=== PATIENT | female | born 1965 | race Caucasian/White ===

== ENCOUNTER 2020-02-25 11:16 | Outpatient (REF) | payer OTHER, SELFPAY ==
[2020-02-25 12:20] LABS: MANUAL DIFF FLAG NO
[2020-02-25 12:24] LABS: Basophils Absolute Auto 0.1 X10*3/uL (0.0-0.2); Basophils Percent Auto 0.7 % (0-2); Eosinophils Absolute Auto 0.4 X10*3/uL (0.0-0.4); Hematocrit 45.5 % (37-47); Hemoglobin 14.8 g/dl (12.0-16.0); Imm Gran Abs Auto 0.03 X10*3/uL (0.00-0.03); Imm Gran Pct Auto 0.4 % (0.0-0.4); Lymphocytes Absolute Auto 2.2 X10*3/uL (1.2-4.9); Mean Corpuscular HGB Conc 32.5 g/dl (31.0-35.0); Mean Corpuscular Hemoglobin 30.4 pg (27.0-33.0); Mean Corpuscular Volume 93.4 fL (80-98); Mean Platelet Volume 10.8 fL (9.4-12.3); Monocytes Absolute Auto 0.4 X10*3/uL (0.1-1.2); Monocytes Percent Auto 5.9 % (2-11); Neutrophils Absolute Auto 4.4 X10*3/uL (2.0-8.3); Platelet Count 260 X10*3/uL (160-400); Red Blood Count 4.87 X10*6/uL (4.20-5.50); Red Cell Distribution Width 12.1 % (11.0-16.0); White Blood Count 7.4 X10*3/uL (4.8-10.8)
[2020-02-25 12:45] LABS: Alanine Aminotransferase 16 U/L (0-31); Albumin Level 4.2 g/dL (3.5-5.0); Alkaline Phosphatase 80 U/L (39-117); Anion Gap 12 (12-20); Aspartate Amino Transferase 16 U/L (5-31); Bilirubin Total 0.3 mg/dL (0.0-1.0); Blood Urea Nitrogen 18 mg/dL (9-16); Calcium 9.8 mg/dL (8.4-10.2); Carbon Dioxide 27 mmol/L (22-29); Chloride 108 mmol/L (96-108); Cholesterol 200 mg/dL; Estimated Glomerular Filt Rate 49; Glucose Fasting 95 mg/dL (60-99); HDL Cholesterol 50 mg/dL; LDL Cholesterol Calculated 122 mg/dl; Potassium 4.5 mmol/l (3.3-5.1); Sodium 142 mmol/L (135-145); Triglycerides 140 mg/dL
[2020-02-25 13:05] LABS: Thyroid Stimulating Hormone 2.35 mIU/mL (0.32-4.0); Vitamin D 25-OH Total 23.8 ng/mL (>30)
== END 2020-02-25 11:17 | disposition home or self-care (01) ==
LOC: HO.LAB 11:16
PROVIDERS: PCP Internal Medicine; Visit Provider Internal Medicine
DX: E89.0 Postprocedural hypothyroidism (principal); E78.00 Pure hypercholesterolemia, unspecified
CPT/HCPCS: 36415; 80053; 80061; 82306; 84443; 85025

== ENCOUNTER 2021-09-18 07:24 | Outpatient (REF) | payer OTHER, SELFPAY ==
[2021-09-18 07:36] LABS: MANUAL DIFF FLAG NO
[2021-09-18 08:06] LABS: Basophils Percent Auto 0.3 % (0-2); Eosinophils Absolute Auto 0.3 X10*3/uL (0.0-0.4); Eosinophils Percent Auto 3.5 % (0-4); Hematocrit 43.5 % (37.0-47.0); Hemoglobin 14.7 g/dl (12.0-16.0); Imm Gran Abs Auto 0.03 X10*3/uL (0.00-0.03); Imm Gran Pct Auto 0.3 % (0.0-0.4); Lymphocytes Absolute Auto 2.6 X10*3/uL (1.2-4.9); Lymphocytes Percent Auto 27.3 % (20-40); Mean Corpuscular HGB Conc 33.8 g/dl (31.0-35.0); Mean Corpuscular Hemoglobin 30.7 pg (27.0-33.0); Mean Corpuscular Volume 90.8 fL (80.0-98.0); Mean Platelet Volume 10.3 fL (9.4-12.3); Monocytes Absolute Auto 0.7 X10*3/uL (0.1-1.2); Monocytes Percent Auto 7.1 % (2-11); Neutrophils Absolute Auto 5.9 x10*3/uL (2.0-8.3); Neutrophils Percent Auto 61.5 % (45-73); Platelet Count 281 X10*3/uL (160-400); Red Blood Count 4.79 X10*6/uL (4.20-5.50); Red Cell Distribution Width 12.9 % (11.0-16.0); White Blood Count 9.5 X10*3/uL (4.8-10.8)
[2021-09-18 08:27] LABS: Alanine Aminotransferase 18 U/L (0-31); Albumin Level 4.3 g/dL (3.5-5.0); Alkaline Phosphatase 68 U/L (39-117); Anion Gap 13 (12-20); Aspartate Amino Transferase 19 U/L (5-31); Bilirubin Total 0.4 mg/dL (0.0-1.0); Blood Urea Nitrogen 15 mg/dL (9-16); Calcium 9.5 mg/dL (8.4-10.2); Carbon Dioxide 23 mmol/L (22-29); Chloride 109 mmol/L (96-108); Cholesterol 189 mg/dL; Estimated Glomerular Filt Rate 55; Glucose Fasting 105 mg/dL (60-99); HDL Cholesterol 42 mg/dL; LDL Cholesterol Calculated 115 mg/dl; Potassium 3.6 mmol/L (3.3-5.1); Sodium 141 mmol/L (135-145); Total Protein 7.3 g/dL (6.5-8.0); Triglycerides 163 mg/dL
[2021-09-18 08:51] LABS: Thyroid Stimulating Hormone 5.98 uIU/mL (0.32-4.0); Vitamin D 25-OH Total 37.3 ng/mL (>30)
== END 2021-09-18 07:25 | disposition home or self-care (01) ==
LOC: HO.LAB 07:24
PROVIDERS: PCP Internal Medicine; Visit Provider Internal Medicine
DX: E89.0 Postprocedural hypothyroidism (principal)
CPT/HCPCS: 36415; 80053; 80061; 82306; 84443; 85025

== ENCOUNTER 2021-09-18 07:39 | Day surgery (SDC) | payer OTHER, SELFPAY ==
[2021-09-11 14:20] VITALS: BMI 30.1
--- NOTE | 2021-09-17 10:00 | HO.ANESPROP2 ---
Documented by User: Dinorah Kerr NP 09/17/21 10:01 HPI - Anesthesia Eval Consult details Narrative: 55yo F for Upper Endoscopy and Colonoscopy [facility] Past Medical History Medical History (Updated 09/11/21 @ 14:13 by Twila Maria, CAROL) Celiac disease Elevated cholesterol Graves disease Surgical History Surgical History (Updated 09/11/21 @ 14:13 by Twila Maria RN) Hx of appendectomy Hx of sinus surgery Social History Social History Patient Tobacco Use Status: Current someday Tobacco user Use of substances other than those prescribed or required for medical reasons: No Are you DNR?: No Advance Directives: No Advance Directives Information Provided: Yes Meds Allergies Allergy/AdvReac Type Severity Reaction Status Date / Time nitrofurantoin Allergy Intermediate RASH Verified 09/11/21 14:14 [From MACROBID] sulfamethoxazole Allergy Intermediate RASH Verified 09/11/21 14:14 [From BACTRIM] trimethoprim [From BACTRIM] Allergy Intermediate RASH Verified 09/11/21 14:14 Penicillins [PENICILLINS] Allergy Unknown UNK Verified 09/11/21 14:14 Home Medications Medication Instructions Recorded Confirmed Last Taken Type cholecalciferol (vitamin D3) 25 25 mcg PO DAILY 09/11/21 09/11/21 Unknown History mcg (1,000 unit) capsule (Vitamin D3) flaxseed oil 1,000 mg capsule 1,000 mg PO DAILY 09/11/21 09/18/21 09/11/21 History levothyroxine 75 mcg tablet 75 mcg PO DAILY 09/11/21 09/18/21 09/18/21 History (Levoxyl) naproxen 500 mg tablet 500 mg PO BID PRN 09/11/21 09/18/21 09/11/21 History pravastatin 20 mg tablet 20 mg PO BEDTIME 09/11/21 09/11/21 Unknown History Exam Exam Date and Time: September 17, 2021 1001 Height,Weight and Vital Signs: Height 5 ft 3 in Weight 77.111 kg Assessment and Plan Assessment Anesthesia Assessment: Chart Reviewed Documented by User: Solange Alva MD 09/18/21 08:45 PMFSH Past Medical History Medical History (Updated 09/11/21 @ 14:13 by Twila Maria, CAROL) Celiac disease Elevated cholesterol Graves disease Surgical History Surgical History (Updated 09/11/21 @ 14:13 by Twila Maria, CAROL) Hx of appendectomy Hx of sinus surgery History of Problems with Anesthesia: No Social History Social History Patient Tobacco Use Status: Current someday Tobacco user Use of substances other than those prescribed or required for medical reasons: No Are you DNR?: No Advance Directives: No Advance Directives Information Provided: Yes Meds Allergies Allergy/AdvReac Type Severity Reaction Status Date / Time nitrofurantoin Allergy Intermediate RASH Verified 09/11/21 14:14 [From MACROBID] sulfamethoxazole Allergy Intermediate RASH Verified 09/11/21 14:14 [From BACTRIM] trimethoprim [From BACTRIM] Allergy Intermediate RASH Verified 09/11/21 14:14 Penicillins [PENICILLINS] Allergy Unknown UNK Verified 09/11/21 14:14 Home Medications Medication Instructions Recorded Confirmed Last Taken Type cholecalciferol (vitamin D3) 25 25 mcg PO DAILY 09/11/21 09/11/21 Unknown History mcg (1,000 unit) capsule (Vitamin D3) flaxseed oil 1,000 mg capsule 1,000 mg PO DAILY 09/11/21 09/18/21 09/11/21 History levothyroxine 75 mcg tablet 75 mcg PO DAILY 09/11/21 09/18/21 09/18/21 History (Levoxyl) naproxen 500 mg tablet 500 mg PO BID PRN 09/11/21 09/18/21 09/11/21 History pravastatin 20 mg tablet 20 mg PO BEDTIME 09/11/21 09/11/21 Unknown History Exam Airway Mallampati Class: II TM Dist: >3cm Neck ROM: Full Loose/Missing/Broken Teeth: No Heart: RRR Lungs: CTA Assessment and Plan Final Anesthetic Review History of Problems with Anesthesia: No NPO: Yes ASA Class: II Final Preanesthetic Review: Meds/Allgs Chart Reviewed, Consent Obtained/Reviewed and Anes Risks/Benef Reviewed Patient Risk: Low Procedure Risk: Intermediate Anesthetic Plan Anesthetic Plan: MAC: Disposition: Standard PACU
[2021-09-18 07:58] VITALS: BMI 29.2
[2021-09-18 08:18] VITALS: BP 166/80; PULSE 74; RESP 18; TEMP 36.8; O2SAT 95
--- NOTE | 2021-09-18 08:40 | MHC.SHP ---
Pre-Procedural Eval Section A Date of Service: 09/18/21 Section B Chief Complaint: Celiac disease,screening,reflux disease Details of Present Illness: see h and p no changes Relevant Family History (Specify if Yes): No Relevant Social History: None Present Medications: see Short Stay Collaborative assessment Medical History: No relevant PMH Allergies: Allergies Allergy/AdvReac Type Severity Reaction Status Date / Time nitrofurantoin Allergy Intermediate RASH Verified 09/11/21 14:14 [From MACROBID] sulfamethoxazole Allergy Intermediate RASH Verified 09/11/21 14:14 [From BACTRIM] trimethoprim [From BACTRIM] Allergy Intermediate RASH Verified 09/11/21 14:14 Penicillins [PENICILLINS] Allergy Unknown UNK Verified 09/11/21 14:14 Review of Systems Sugical H&P ROS: Negative: Constitution, Cardiovascular, Respiratory, Neurological, Psychiatric, Hem-Onc, Allergic/Immunologic, Gastrointestinal, Genitourinary, Musculoskeletal, Integumentary, Endocrine and Eyes/Ears/Nose/Throat Exam Surgical H&P Exam: Normal: HEENT, Normal: Heart, Normal: Lungs, Normal: Extremities, Normal: Abdomen, Normal: Skin and Normal: Neurological Plan Diagnosis/Plan: Unchanged I have reviewed the history and physical and performed a pertinent physical examination on my patient. No changes have occurred unless specified.
[2021-09-18] MEDS: Lactated Ringers 1,000 ML 100 ML IVCONT (08:44)
--- NOTE | 2021-09-18 09:23 | PM.OP ---
Brief Operative Note Date of Service: 09/18/21 Pre-op diagnosis: gerd, celiac disease, screening Post-op diagnosis: same Procedure: egd/colon Surgeon: Washington Ontiveros Anesthesia: MAC Was an [employer] used for this Procedure?: No Estimated blood loss (mL): 5 Pathology: other Condition: stable Disposition: PACU
[2021-09-18 09:25] VITALS: BP 124/70; PULSE 67; RESP 18; TEMP 36.8; O2SAT 98
[2021-09-18 09:40] VITALS: PULSE 73; RESP 18; TEMP 36.8; O2SAT 98
--- NOTE | 2021-09-18 20:12 | OP_ITS ---
SURGEON: Washington Ontiveros MD INDICATIONS: Gastroesophageal reflux disease, celiac disease, and colon cancer screening. PREOPERATIVE DIAGNOSIS: POSTOPERATIVE DIAGNOSIS: PROCEDURE PERFORMED: ESTIMATED BLOOD LOSS: COMPLICATIONS: ANESTHESIA: ASSISTANTS: SPECIMENS: PROCEDURE: Upper endoscopy with biopsy, colonoscopy to the terminal ileum. MEDICATIONS: Monitored anesthesia care. DESCRIPTION OF PROCEDURE: History and physical performed. The risks and benefits of the procedure were explained to the patient. Informed consent was obtained. The patient was placed in the left lateral decubitus position. The Olympus video gastroscope was introduced into the esophagus, stomach, and duodenum. Examination was performed. The scope was removed. She was repositioned for colonoscopy. A digital rectal exam was performed and was found to be normal. The Olympus pediatric video colonoscope was introduced into the rectum and advanced to the cecum without difficulty. The cecum was identified by transillumination, palpation, and identification of ileocecal valve. Examination was performed. The scope was removed. She tolerated both procedures well and was returned to recovery area in stable condition. FINDINGS: Upper endoscopy: 1. Esophagus: The esophagus was normal. There was a nonobstructive Schatzki ring. There was no esophagitis. There was a small sliding hiatal hernia. 2. Stomach: The stomach showed no evidence of masses, ulcers, or polyps. Antral biopsies were obtained to rule out H pylori. Biopsies were also obtained from the EG junction. 3. Duodenum: The bulb and second portion were normal. Biopsies were obtained because of the patient's history of celiac disease. COLONOSCOPY: The terminal ileum was normal. The visualized colonic mucosa was normal. The quality of prep was good. No polyps were identified. There was mild sigmoid diverticulosis. Retroflexed examination showed some hypertrophic anal papillae and some moderate-sized internal hemorrhoids. IMPRESSION: 1. Gastroesophageal reflux disease. 2. Celiac disease. 3. Normal colonoscopy. RECOMMENDATIONS: 1. Follow up the biopsy results. 2. Repeat colonoscopy is recommended in 10 years for average risk individuals. MD ROGERS Ford/GIULIAL / [id number]
== END 2021-09-18 10:04 | disposition home or self-care (01) ==
PROVIDERS: PCP Internal Medicine; Visit Provider Internal Medicine Gastroenterology
PROC: (CPT 45378; principal; 2021-09-18 08:50)
DX: Z12.11 Encounter for screening for malignant neoplasm of colon (principal); K57.30 Diverticulosis of large intestine without perforation or abscess without bleeding; K62.89 Other specified diseases of anus and rectum; K64.8 Other hemorrhoids; K21.9 Gastro-esophageal reflux disease without esophagitis; K90.0 Celiac disease; K22.2 Esophageal obstruction; K44.9 Diaphragmatic hernia without obstruction or gangrene; E05.00 Thyrotoxicosis with diffuse goiter without thyrotoxic crisis or storm; E78.00 Pure hypercholesterolemia, unspecified; L80 Vitiligo; Z79.899 Other long term (current) drug therapy; Z79.1 Long term (current) use of non-steroidal anti-inflammatories (NSAID); Z88.0 Allergy status to penicillin; Z88.1 Allergy status to other antibiotic agents; Z88.2 Allergy status to sulfonamides; Z98.890 Other specified postprocedural states
CPT/HCPCS: 45378; 43239; 88305; 88342

== ENCOUNTER 2023-07-28 08:06 | Outpatient (REF) | payer OTHER, SELFPAY ==
[2023-07-28 11:04] LABS: MANUAL DIFF FLAG NO
[2023-07-28 11:08] LABS: Basophils Absolute Auto 0.1 X10*3/uL (0.0-0.2); Basophils Percent Auto 0.5 % (0-2); Eosinophils Absolute Auto 0.4 X10*3/uL (0.0-0.4); Eosinophils Percent Auto 3.8 % (0-4); Hematocrit 45.4 % (37.0-47.0); Hemoglobin 15.3 g/dl (12.0-16.0); Imm Gran Abs Auto 0.03 X10*3/uL (0.00-0.03); Imm Gran Pct Auto 0.3 % (0.0-0.4); Lymphocytes Absolute Auto 2.5 X10*3/uL (1.2-4.9); Mean Corpuscular HGB Conc 33.7 g/dl (31.0-35.0); Mean Corpuscular Hemoglobin 30.8 pg (27.0-33.0); Mean Corpuscular Volume 91.3 fL (80.0-98.0); Mean Platelet Volume 9.9 fL (9.4-12.3); Monocytes Absolute Auto 0.6 X10*3/uL (0.1-1.2); Monocytes Percent Auto 6.5 % (2-11); Neutrophils Absolute Auto 5.7 x10*3/uL (2.0-8.3); Neutrophils Percent Auto 61.9 % (45-73); Platelet Count 294 X10*3/uL (160-400); Red Blood Count 4.97 X10*6/uL (4.20-5.50); Red Cell Distribution Width 12.5 % (11.0-16.0); White Blood Count 9.2 X10*3/uL (4.8-10.8)
[2023-07-28 11:32] LABS: Alanine Aminotransferase 20 U/L (0-31); Albumin Level 4.3 g/dL (3.5-5.0); Alkaline Phosphatase 90 U/L (39-117); Anion Gap 13 (12-20); Aspartate Amino Transferase 17 U/L (5-31); Bilirubin Total 0.3 mg/dL (0.0-1.0); Blood Urea Nitrogen 21 mg/dL (9-16); Calcium 9.7 mg/dL (8.4-10.2); Carbon Dioxide 27 mmol/L (22-29); Chloride 107 mmol/L (96-108); Cholesterol 198 mg/dL (<200); Estimated Glomerular Filt Rate > 60; Glucose Fasting 108 mg/dL (60-99); HDL Cholesterol 49 mg/dL (>40); LDL Cholesterol Calculated 121 mg/dL (<100); Potassium 3.8 mmol/L (3.3-5.1); Sodium 143 mmol/L (135-145); Total Protein 7.7 g/dL (6.5-8.0); Triglycerides 143 mg/dL (<150)
[2023-07-28 11:50] LABS: Vitamin D 25-OH Total 38.6 ng/mL (>30)
== END 2023-07-28 08:07 | disposition home or self-care (01) ==
LOC: HO.10HDL 08:06
PROVIDERS: Visit Provider Internal Medicine
DX: Z00.00 Encounter for general adult medical examination without abnormal findings (principal); E78.00 Pure hypercholesterolemia, unspecified; K90.0 Celiac disease; E89.0 Postprocedural hypothyroidism
CPT/HCPCS: 36415; 80053; 80061; 82306; 84443; 85025

== ENCOUNTER 2023-08-26 12:43 | Outpatient (REF) | payer OTHER, SELFPAY ==
--- NOTE | ~2023-08-26 | XR_ITS ---
EXAMINATION: XR LEFT ANKLE, LEFT FOOT CLINICAL INFORMATION: Patient stated no injury. Pain in left ankle and foot, lateral ankle combined with lateral foot. COMPARISON: None available. TECHNIQUE: 3 views of the left foot. 2 views of the left ankle. FINDINGS: Left Ankle: Ankle joint effusion. Soft tissue swelling diffusely of the left ankle and lateral left foot. Small dorsal and plantar calcaneal spurs. Talar dome and ankle mortise are preserved. Left Foot: The bones are diffusely demineralized. Heterogeneous calcifications in the soft tissues between the shafts of the first and second metatarsals. Moderate degenerative changes in the first metatarsophalangeal joint. Tiny subchondral cystic lucency along the medial aspect of the first metatarsal head. Moderate degenerative changes with hypertrophic change in the first tarsometatarsal joint. XR/XR ankle LT min 3V IMPRESSION: 1. Ankle joint effusion. Soft tissue swelling diffusely about the left ankle and lateral left foot. 2. Moderate degenerative changes in the first metatarsophalangeal joint. Tiny subchondral cystic lucency along the medial aspect of the first metatarsal head. 3. Moderate degenerative changes with hypertrophic change in the first tarsometatarsal joint. 4. Heterogeneous calcifications in the soft tissues between the shafts of the first and second metatarsals. 5. Recommend follow-up imaging in 10-14 days if fracture is suspected.
--- NOTE | ~2023-08-26 | XR_ITS ---
EXAMINATION: XR LEFT ANKLE, LEFT FOOT CLINICAL INFORMATION: Patient stated no injury. Pain in left ankle and foot, lateral ankle combined with lateral foot. COMPARISON: None available. TECHNIQUE: 3 views of the left foot. 2 views of the left ankle. FINDINGS: Left Ankle: Ankle joint effusion. Soft tissue swelling diffusely of the left ankle and lateral left foot. Small dorsal and plantar calcaneal spurs. Talar dome and ankle mortise are preserved. Left Foot: The bones are diffusely demineralized. Heterogeneous calcifications in the soft tissues between the shafts of the first and second metatarsals. Moderate degenerative changes in the first metatarsophalangeal joint. Tiny subchondral cystic lucency along the medial aspect of the first metatarsal head. Moderate degenerative changes with hypertrophic change in the first tarsometatarsal joint. XR/XR foot LT min 3V IMPRESSION: 1. Ankle joint effusion. Soft tissue swelling diffusely about the left ankle and lateral left foot. 2. Moderate degenerative changes in the first metatarsophalangeal joint. Tiny subchondral cystic lucency along the medial aspect of the first metatarsal head. 3. Moderate degenerative changes with hypertrophic change in the first tarsometatarsal joint. 4. Heterogeneous calcifications in the soft tissues between the shafts of the first and second metatarsals. 5. Recommend follow-up imaging in 10-14 days if fracture is suspected.
== END 2023-08-26 12:44 | disposition home or self-care (01) ==
LOC: HO.XRAY 12:43
PROVIDERS: PCP Internal Medicine; Visit Provider Internal Medicine
DX: M25.572 Pain in left ankle and joints of left foot (principal)
CPT/HCPCS: 73610; 73630

== ENCOUNTER 2024-02-06 15:51 | Outpatient (REF) | payer OTHER, SELFPAY ==
[2024-02-06 16:04] LABS: MANUAL DIFF FLAG NO
[2024-02-06 16:51] LABS: Basophils Absolute Auto 0.1 X10*3/uL (0.0-0.2); Basophils Percent Auto 0.7 % (0-2); Eosinophils Absolute Auto 0.3 X10*3/uL (0.0-0.4); Eosinophils Percent Auto 3.1 % (0-4); Hematocrit 44.3 % (37.0-47.0); Hemoglobin 14.8 g/dl (12.0-16.0); Imm Gran Abs Auto 0.09 X10*3/uL (0.00-0.03); Lymphocytes Absolute Auto 2.3 X10*3/uL (1.2-4.9); Lymphocytes Percent Auto 25.2 % (20-40); Mean Corpuscular HGB Conc 33.4 g/dl (31.0-35.0); Mean Corpuscular Volume 92.9 fL (80.0-98.0); Mean Platelet Volume 10.8 fL (9.4-12.3); Monocytes Absolute Auto 0.6 X10*3/uL (0.1-1.2); Neutrophils Absolute Auto 5.7 x10*3/uL (2.0-8.3); Platelet Count 295 X10*3/uL (160-400); Red Blood Count 4.77 X10*6/uL (4.20-5.50); Red Cell Distribution Width 12.6 % (11.0-16.0)
[2024-02-06 17:09] LABS: Alanine Aminotransferase 15 U/L (0-31); Albumin Level 4.3 g/dL (3.5-5.0); Alkaline Phosphatase 85 U/L (39-117); Anion Gap 14 (12-20); Aspartate Amino Transferase 15 U/L (5-31); Bilirubin Total 0.2 mg/dL (0.0-1.0); Blood Urea Nitrogen 21 mg/dL (9-16); Calcium 10.2 mg/dL (8.4-10.2); Carbon Dioxide 25 mmol/L (22-29); Chloride 107 mmol/L (96-108); Estimated Glomerular Filt Rate > 60; Glucose Random 90 mg/dL (60-115); Potassium 4.1 mmol/L (3.3-5.1); Sodium 142 mmol/L (135-145); Total Protein 7.5 g/dL (6.5-8.0); Uric Acid 5.2 mg/dL (2.4-5.7)
[2024-02-06 19:26] LABS: Erythrocyte Sedimentation Rate 12 MM/HR (0-20)
== END 2024-02-06 15:52 | disposition home or self-care (01) ==
LOC: HO.LAB 15:51
PROVIDERS: PCP Internal Medicine; Visit Provider Internal Medicine
DX: M25.572 Pain in left ankle and joints of left foot (principal)
CPT/HCPCS: 36415; 80053; 84550; 85025; 85652; 86140

== ENCOUNTER 2024-09-17 15:56 | Outpatient (AMB) | payer OTHER, SELFPAY ==
--- NOTE | 2024-09-17 15:59 | A.OFFPC_ITS ---
Vital Signs 09/17/24 16:07 Height 5 ft 3 in Weight 165 lb BMI 29.2 BP 150/74 H Respiration 14 Pulse 80 Pulse Source Pulse Oximeter Temp 97.8 F Temp Source Temporal Artery Scan Pulse Oximetry (%) 95 Oxygen Delivery Method Room Air Intake Visit Reasons: Follow up Education Analyst Required: No Accompanied by: Self / Same As Patient Allergies nitrofurantoin [From MACROBID] Allergy (Intermediate, Verified 09/17/24 16:25) RASH sulfamethoxazole [From BACTRIM] Allergy (Intermediate, Verified 09/17/24 16:25) RASH trimethoprim [From BACTRIM] Allergy (Intermediate, Verified 09/17/24 16:25) RASH amoxicillin Allergy (Mild, Verified 09/17/24 16:25) Rash Penicillins [PENICILLINS] Allergy (Unknown, Verified 09/17/24 16:25) UNK Medication List - Last Reconciled 09/17/24 by Clara Beth PA-C celecoxib 200 mg PO DAILY cholecalciferol (vitamin D3) (Vitamin D3) 25 mcg PO DAILY flaxseed oil 1,000 mg PO DAILY levothyroxine 100 mcg PO DAILY sertraline 50 mg PO DAILY Tobacco use date assessed: 09/17/24 Dental Screening Dental Screen Date: 09/17/24 Did you have a dental visit in the last 12 months?: No Did you have a dental problem in the last 6 months where you did not have access to dental care?: No HPI Follow up HPI Details The patient is a 58-year-old female presenting with hypertension and for medication management. She reports having blood pressure readings at home indicating consistent elevations, such as 166/88 mmHg and 172/74 mmHg. 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 In addition to hypertension, the patient addresses osteoarthritis in her ankle causing pain during physical activity, such as walking. She manages the condition with orthotics after strategies including a steroid and usage of a boot. The patient has a history of Graves' disease, with radioactive iodine treatment administered after a major decline in thyroid function post-. She has maintained regular monitoring and medication since these events. She expresses a desire to discontinue sertraline, questioning its efficacy in managing her primary concern of anxiety. The patient has experienced depression in the past but identifies current anxiety as distinct and unaffected by sertraline. Lastly, the patient has celiac disease and a history of dental issues, worsened by a previous dentist's inappropriate management. Social History - Exercise: The patient attempts to main tain physical activity through walking, despite pain from osteoarthritis in her ankle. - Weight Management: She endeavors to ma nage her weight actively. - Family Status: Recently visited [facility] with her son, indicating an active family role. [facility] Medical History (Updated 09/20/24 @ 10:50 by Clara Beth PA-C) Hypertension Depression Osteoarthritis Hyperlipidemia LDL goal <100 History of mammogram (~06/2024) Establishing care with new doctor, encounter for Vitiligo Anxiety Neuropathy Pure hypercholesterolemia, unspecified Graves disease Celiac disease Elevated cholesterol Surgical History History of colonoscopy (~09/18/21) Hx of sinus surgery Hx of appendectomy Family History Father Heart attack Mother Dementia Social History Housing: House Alcohol intake: current Alcohol intake frequency: holidays/special occasions only Patient Tobacco Use Status: Current everyday Tobacco user Cigarettes Per Day: 6 service: Yes Current occupational status: employed Cognitive needs: No Hearing needs: No Vision needs: Yes (rx glasses) Questionnaire PHQ-9 Over the last 2 weeks, how often have you been bothered by any of the following problems? 1. Little interest or pleasure in doing things: not at all 2. Feeling down, depressed, or hopeless: not at all 3. Trouble falling or staying asleep, or sleeping too much: not at all 4. Feeling tired or having little energy: not at all 5. Poor appetite or overeating: not at all 6. Feeling bad about yourself - or that you are a failure or have let yourself or your family down: not at all 7. Trouble concentrating on things, such as reading the newspaper or watching television: not at all 8. Moving or speaking so slowly that other people could have noticed. Or the opposite - being so fidgety or restless that you have been moving around a lot more than usual: not at all 9. Thoughts that you would be better off or of hurting yourself in some way: not at all Total score: 0 Depression Screening Interpretation: Negative Depression Screening Done: Yes 53852 - PHQ-9 Billing: Yes Source: Developed by Drs. Shaq Mccollum, Shaina Muniz, Hernandez Antonio and colleagues, with an educational janna from [employer]. Thrive Questionnaire Date Thrive assessed: 09/17/24 I am a: Patient What is your living situation today?: I have a steady place to live Within the past 12 months, did the food you bought not last and you didn't have the money to get more?: Never true Within the past 12 months, did you worry whether your food would run out before you got money to buy more?: Never true Do you have trouble paying for medicines?: No Do you have trouble getting transportation to medical appointments?: No Do you have trouble paying your heating and electricity bill?: No Do you have trouble taking care of your child, family member or friend?: No Do you have trouble with day-to-day activities such as bathing, preparing meals, shopping, managing finances, etc.?: No Are you currently unemployed and looking for a job?: No Are you interested in more education?: No Please select the resources that you would like help with: None THRIVE Score: 0 AUDIT C Alcohol Use Questionnaire (AUDIT-C) 1. How often do you have a drink containing alcohol?: Monthly or less 2. How many drinks containing alcohol do you have on a typical day when you are drinking?: 1 or 2 3. How often do you have six or more drinks on one occasion?: Never Total Score: 1 Score Reviewed/Action Taken: No EWA-7 AMB Questionnaire EWA-7 Date EWA - 7 assessed: 09/17/24 Feeling nervous, anxious, or on edge: 1 = Several days Not being able to stop or control worryin = Nearly every day Worrying too much about different things: 3 = Nearly every day Trouble relaxin = Nearly every day Being so restless that it is hard to sit still: 3 = Nearly every day Becoming easily annoyed or irritable: 1 = Several days Feeling afraid as if something awful might happen: 1 = Several days Total EWA-7 score (0-4 normal; 5-9 mild; 10-14 moderate; 15-21 severe): 15 Source: Developed by Drs. Shaq Mccollum, Shaina Muniz, Hernandez Antonio and colleagues, with an educational janna from [employer]. EWA-7 Assessment Billing EWA-7 Assessment Tool: EWA-7 Assessment 14697 Review of Systems Const Details: - Cardiovascular: Reports elevated blood pressure at home, with no other cardiovascular symptoms. - Musculoskeletal: Reports ankle pain due to osteoarthritis. - Endocrine: Reports history of Graves' disease, currently on medication. - Psychiatric: Reports history of depression and current anxiety, desires to discontinue sertraline. - Dental: Reports past issues with dental health. - Gastrointestinal: Celiac disease reported, with no details on current symptoms. Physical exam (Primary Care) Vital Signs: Last Vital Signs Temp 97.8 F 09/17/24 16:07 Pulse 80 09/17/24 16:07 Resp 14 09/17/24 16:07 BP 150/74 H 09/17/24 16:07 Pulse Ox 95 09/17/24 16:07 Oxygen Delivery Method Room Air 09/17/24 16:07 Care Plan Goal for BP management: <130/90 BMI result Body Mass Index 29.2 BMI Assessment/Plan discussion: High BMI High, discussed plan: lifestyle, weight reduction, dietary, physical activity and alcohol moderation Tobacco/Smoking Status: Tobacco use Status Tobacco use date assessed 09/17/24 09/17/24 16:03 Patient Tobacco Use Status Current everyday Tobacco 09/17/24 16:17 PHQ-9: PHQ-9 Score PHQ-9: Total score 0 09/17/24 16:25 Depression Screening Interpretation: Negative Thrive Assessment: Date of Thrive Assessment Date Thrive assessed 09/17/24 09/17/24 16:03 Const Other: Appearance: Alert. Oriented X3. No acute distress. Head: Normal external exam. Normocephalic. Atraumatic. Eyes: Pupils are equal, round, and reactive to light. Extraocular movements intact. Conjunctiva and sclera normal. Eyelids normal. Ears: External auditory canal normal. Tympanic membranes normal. Throat: Pharynx normal. Uvula midline. Moist mucous membranes. Neck: Normal inspection. Neck supple. Full range of motion. No adenopathy. Thyroid Normal. No meningeal signs. No neck mass noted. Cardiovascular: Normal heart rate and rhythm. Heart sound normal. No murmurs noted. Pulses normal throughout. Respiratory: No respiratory distress. Painless inspiration. Breath sounds normal. No wheezes/rales/rhonchi noted. Chest nontender. No accessory muscle usage noted or decreased air movement noted. Abdomen: Soft and nontender. Bowel sounds normal in all 4 quadrants. No distention noted. No organomegaly noted. No visible injury noted. Back: Full range of motion noted. Skin: Skin warm and dry. Normal skin color. Normal skin turgor. No rashes/lesions/lacerations noted. Extremities: No lower extremity pitting edema noted or calf tenderness noted bilaterally. Extremities exhibit normal range of motion. Neuro: Oriented X 3. No motor deficit. No sensory deficit. Reflexes normal. Results Reviewed Results Reviewed: - Labs: - Uric Acid: 5.2 - ESR: Within normal limits at 12 - Thyroid Function: TSH level 0.40 - LDL 121 - Coding Level of Care Code New Pt Level 4 (55698) Complex EM visit Add On G2211 Diagnoses Establishing care with new doctor, encounter for Z76.89 Anxiety F41.9 Graves disease E05.00 Celiac disease K90.0 Hyperlipidemia LDL goal <100 E78.5 Osteoarthritis M19.90 Depression F32.A Hypertension I10 Additional Codes EWA-7 Assessment Billing - EWA-7 Assessment Tool: EWA-7 Assessment 77371 ([id number]) PHQ-9 - 15245 - PHQ-9 Billing: Yes ([id number]) Assessment & Plan Assessment & Plan (1) Establishing care with new doctor, encounter for: Code(s): Z76.89 - Persons encountering health services in other specified circumstances Category: Medical (2) Anxiety: Code(s): F41.9 - Anxiety disorder, unspecified Category: Medical Plan: Begin tapering off sertraline with patient-determined reductions. Monitor anxiety levels and adjust accordingly. Condition is chronic and stable continue to monitor. (3) Graves disease: Code(s): E05.00 - Thyrotoxicosis with diffuse goiter without thyrotoxic crisis or storm Category: Medical Plan: Maintain current thyroid medication regimen. Regular thyroid function test monitoring advised to ensure proper dosing. Condition is chronic and stable continue to monitor. (4) Celiac disease: Code(s): K90.0 - Celiac disease Category: Medical Plan: Routine monitoring of nutritional and dental health. No immediate interventions outlined. Condition is chronic and stable continue to monitor. (5) Hyperlipidemia LDL goal <100: Code(s): E78.5 - Hyperlipidemia, unspecified Category: Medical Plan: LDL level goal less than 100. LDL 121 on 07/28/2023. Patient to continue diet and exercise to improve hyperlipidemia. Condition is chronic and stable continue to monitor. (6) Osteoarthritis: Code(s): M19.90 - Unspecified osteoarthritis, unspecified site Category: Medical Plan: Continue orthotic use. Manage pain with NSAIDs, avoiding steroids. Surgical intervention not currently recommended. Condition is chronic and stable will continue to monitor. (7) Depression: Code(s): F32.A - Depression, unspecified Category: Medical Plan: Begin tapering off sertraline with patient-determined reductions. Monitor anxiety levels and adjust accordingly. Condition is chronic and stable continue to monitor. (8) Hypertension: Code(s): I10 - Essential (primary) hypertension Category: Medical Plan: Begin Lisinopril 5 mg daily. Discussed potential side effect of cough and instructed to monitor blood pressure regularly. Follow-up in a month. Plan Plan Patient was informed and verbally consented to the use of an ambient scribe for clinic note documentation during this visit. 1. Essential Hypertension Begin Lisinopril 5 mg daily. Discussed potential side effect of cough and instructed to monitor blood pressure regularly. Follow-up in a month. 2. Osteoarthritis Of The Ankle Continue orthotic use. Manage pain with NSAIDs, avoiding steroids. Surgical intervention not currently recommended. 3. Graves' Disease Maintain current thyroid medication regimen. Regular thyroid function test monitoring advised to ensure proper dosing. 4. Depression Begin tapering off sertraline with patient-determined reductions. Monitor anxiety levels and adjust accordingly. 5. Celiac Disease Routine monitoring of nutritional and dental health. No immediate interventions outlined. During the visit, the patient and I discussed the necessity and rationale for initiating Lisinopril 5 mg daily, emphasizing the need for blood pressure control due to sustained elevated readings. We reviewed the possibility of a cough as a side effect and the rare risk of angioedema. We addressed the management of osteoarthritis with orthotics and NSAIDs, avoiding steroids due to concerns about weight and long-term health impacts. The patient's preference to avoid surgical intervention was acknowledged as reasonable considering possible complications. The patient's Graves' disease management was reviewed; regular assessment of thyroid function was stressed to adjust medication levels as warranted. She expressed a desire to taper sertraline due to the perceived lack of improvement for anxiety. I provided a structured reduction plan to mitigate withdrawal symptoms. Finally, we addressed her history of celiac disease and its historical impact on her dental health, agreeing to ongoing monitoring. Orders: Orders Lipid Panel 09/17/24. - Encounter for general adult medical examination without abnormal findings TSH reflex Free T4 09/17/24. - Encounter for general adult medical examination without abnormal findings Complete Blood Count Auto Diff 09/17/24. - Encounter for general adult medical examination without abnormal findings Comprehensive [place]. Panel Fast 09/17/24. - Encounter for general adult medical examination without abnormal findings Magnesium 09/17/24. - Encounter for general adult medical examination without abnormal findings Vitamin B12 and Folate 09/17/24 - Encounter for general adult medical examination without abnormal findings C Reactive Protein 09/17/24 - Encounter for general adult medical examination without abnormal findings Hemoglobin A1c 09/17/24. - Encounter for general adult medical examination without abnormal findings Liver Panel 09/17/24. - Encounter for general adult medical examination without abnormal findings Vitamin D 25-OH Total 09/17/24. - Encounter for general adult medical examination without abnormal findings Medications: New lisinopril 5 mg PO DAILY 30 tabs 0RF Patient Instructions: - Take Lisinopril 5 mg once daily for blood pressure control. - Monitor blood pressure regularly and document readings, especially two hours after taking the medication. - Use ankle orthotics consistently, and take NSAIDs like Celebrex for pain as needed. - Follow the plan for gradually tapering off sertraline and monitor for any adverse changes in mood or anxiety. - Maintain thyroid medication as prescribed and follow up for regular thyroid function testing. - Report any unexplained cough or lip swelling promptly as these could be adverse reactions. - Return for a follow-up appointment in one month to reassess blood pressure and medication effectiveness.
[2024-09-17 16:07] VITALS: BP 150/74; PULSE 80; RESP 14; TEMP 36.6; O2SAT 95; BMI 29.2
== END 2024-09-17 16:48 | disposition home or self-care (01) ==
LOC: HO.HMCSH 15:56
PROVIDERS: PCP Internal Medicine; Visit Provider Physician Assistant Medical
DX: Z76.89 Persons encountering health services in other specified circumstances (principal); F41.9 Anxiety disorder, unspecified; E05.00 Thyrotoxicosis with diffuse goiter without thyrotoxic crisis or storm; K90.0 Celiac disease; E78.5 Hyperlipidemia, unspecified; M19.90 Unspecified osteoarthritis, unspecified site; F32.A Depression, unspecified; I10 Essential (primary) hypertension

== ENCOUNTER → 2024-09-17 15:56 | Outpatient (BNVA) | payer OTHER, SELFPAY | PROVIDERS: PCP Internal Medicine; Visit Provider Physician Assistant Medical | DX: Z76.89 Persons encountering health services in other specified circumstances (principal); F41.9 Anxiety disorder, unspecified; E05.00 Thyrotoxicosis with diffuse goiter without thyrotoxic crisis or storm; K90.0 Celiac disease; E78.5 Hyperlipidemia, unspecified; M19.90 Unspecified osteoarthritis, unspecified site; F32.A Depression, unspecified; I10 Essential (primary) hypertension | CPT/HCPCS: 96127 ==

== ENCOUNTER 2024-10-22 14:56 | Outpatient (AMB) | payer OTHER, SELFPAY ==
[2024-10-22 15:08] VITALS: BP 128/60; PULSE 76; RESP 14; TEMP 36.8; O2SAT 94; BMI 29.4
--- NOTE | 2024-10-22 15:08 | A.OFFPC_ITS ---
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 Accompanied by: Self / Same As Patient Allergies nitrofurantoin [From MACROBID] Allergy (Intermediate, Verified 10/22/24 15:18) RASH sulfamethoxazole [From BACTRIM] Allergy (Intermediate, Verified 10/22/24 15:18) RASH trimethoprim [From BACTRIM] Allergy (Intermediate, Verified 10/22/24 15:18) RASH amoxicillin Allergy (Mild, Verified 10/22/24 15:18) Rash Penicillins [PENICILLINS] Allergy (Unknown, Verified 10/22/24 15:18) Rash Medication List - Last Reconciled 10/22/24 by Clara Beth PA-C celecoxib 200 mg PO DAILY cholecalciferol (vitamin D3) (Vitamin D3) 25 mcg PO DAILY flaxseed oil 1,000 mg PO DAILY levothyroxine 100 mcg PO DAILY lisinopril 5 mg PO DAILY magnesium 500 mg PO DAILY sertraline 50 mg PO DAILY Tobacco use date assessed: 10/22/24 Dental Screening Dental Screen Date: 09/17/24 HPI follow up HPI Details The patient is a 58-year-old female presenting with management of hypertension, evaluation of a persistent cough, and discussion of ankle pain and depression. The patient reports a history of hypertension, which has been well-controlled with lisinopril until recently when she developed a persistent cough. The cough has been bothersome, particularly at night, leading to sleep disturbances. She suspects the cough may be related to lisinopril, as it coincided with the onset of her symptoms. The patient experienced an episode of severe allergic reaction symptoms, i ncluding nasal congestion and a prolonged cough, lasting approximately 10 days. She did not have a fever but described it as the worst allergy attack she has ever had. Regarding her ankle pain, the patient has been using a topical NSAID and meloxicam, [facility]. She was advised against using Celebrex due to potential cardiovascular risks and has been cautious with her medication use. The patient also reports experiencing depressive symptoms, which she attributes to recent stressors and changes in her work environment. She had considered tapering off sertraline but decided to continue due to worsening symptoms when attempting to reduce the dose. Social History - Employment: Recently finished work, co ntributing to stress and depressive symptoms. [facility] Medical History (Updated 10/22/24 @ 16:17 by Clara Beth PA-C) Ankle pain Adverse effect of lisinopril Hypertension Depression Osteoarthritis Hyperlipidemia LDL goal <100 History of mammogram (~06/2024) Establishing care with new doctor, encounter for Vitiligo Anxiety Neuropathy Pure hypercholesterolemia, unspecified Graves disease Celiac disease Elevated cholesterol Surgical History History of colonoscopy (~09/18/21) Hx of sinus surgery Hx of appendectomy Family History Father Heart attack Mother Dementia Social History Housing: House Alcohol intake: current Alcohol intake frequency: holidays/special occasions only Patient Tobacco Use Status: Current everyday Tobacco user Cigarettes Per Day: 6 service: Yes Current occupational status: employed Cognitive needs: No Hearing needs: No Vision needs: Yes (rx glasses) Questionnaire PHQ-9 Over the last 2 weeks, how often have you been bothered by any of the following problems? 1. Little interest or pleasure in doing things: not at all 2. Feeling down, depressed, or hopeless: not at all 3. Trouble falling or staying asleep, or sleeping too much: not at all 4. Feeling tired or having little energy: not at all 5. Poor appetite or overeating: not at all 6. Feeling bad about yourself - or that you are a failure or have let yourself or your family down: not at all 7. Trouble concentrating on things, such as reading the newspaper or watching television: not at all 8. Moving or speaking so slowly that other people could have noticed. Or the opposite - being so fidgety or restless that you have been moving around a lot more than usual: not at all 9. Thoughts that you would be better off or of hurting yourself in some way: not at all Total score: 0 Depression Screening Interpretation: Negative Depression Screening Done: Yes 72093 - PHQ-9 Billing: Yes Source: Developed by Drs. Shaq Mccollum, Shaina Muniz, Hernandez Antonio and colleagues, with an educational janna from [employer]. Thrive Questionnaire Date Thrive assessed: 09/17/24 I am a: Patient What is your living situation today?: I have a steady place to live Within the past 12 months, did the food you bought not last and you didn't have the money to get more?: Never true Within the past 12 months, did you worry whether your food would run out before you got money to buy more?: Never true Do you have trouble paying for medicines?: No Do you have trouble getting transportation to medical appointments?: No Do you have trouble paying your heating and electricity bill?: No Do you have trouble taking care of your child, family member or friend?: No Do you have trouble with day-to-day activities such as bathing, preparing meals, shopping, managing finances, etc.?: No Are you currently unemployed and looking for a job?: No Are you interested in more education?: No Please select the resources that you would like help with: None THRIVE Score: 0 AUDIT C Alcohol Use Questionnaire (AUDIT-C) 1. How often do you have a drink containing alcohol?: Monthly or less 2. How many drinks containing alcohol do you have on a typical day when you are drinking?: 1 or 2 3. How often do you have six or more drinks on one occasion?: Never Total Score: 1 Score Reviewed/Action Taken: No EWA-7 AMB Questionnaire EWA-7 Date EWA - 7 assessed: 09/17/24 Feeling nervous, anxious, or on edge: 1 = Several days Not being able to stop or control worryin = Nearly every day Worrying too much about different things: 3 = Nearly every day Trouble relaxin = Nearly every day Being so restless that it is hard to sit still: 3 = Nearly every day Becoming easily annoyed or irritable: 1 = Several days Feeling afraid as if something awful might happen: 1 = Several days Total EWA-7 score (0-4 normal; 5-9 mild; 10-14 moderate; 15-21 severe): 15 Source: Developed by Shaina Anthony Kurt Kroenke and colleagues, with an educational janna from [employer]. EWA-7 Assessment Billing EWA-7 Assessment Tool: EWA-7 Assessment 72325 Review of Systems Const Details: - Respiratory: Reports persistent cough, particularly at night. - Neurological: Denies thoughts of self-harm or harm to others. - Psychiatric: Reports depressive symptoms related to stress and work changes. Physical exam (Primary Care) Vital Signs: Last Vital Signs Temp 98.2 F 10/22/24 15:08 Pulse 76 10/22/24 15:08 Resp 14 10/22/24 15:08 BP 128/60 10/22/24 15:08 Pulse Ox 94 10/22/24 15:08 Oxygen Delivery Method Room Air 10/22/24 15:08 Care Plan Goal for BP management: <140/90 at Goal BMI result Body Mass Index 29.4 BMI Assessment/Plan discussion: High BMI High, discussed plan: lifestyle, weight reduction, dietary, physical activity and alcohol moderation Tobacco/Smoking Status: Tobacco use Status Tobacco use date assessed 10/22/24 10/22/24 15:16 Patient Tobacco Use Status Current everyday Tobacco 10/22/24 15:16 PHQ-9: PHQ-9 Score PHQ-9: Total score 0 10/22/24 15:16 Depression Screening Interpretation: Negative Thrive Assessment: Date of Thrive Assessment Date Thrive assessed 09/17/24 10/22/24 15:16 Const Other: Appearance: Alert. Oriented X3. No acute distress. Head: Normal external exam. Normocephalic. Atraumatic. Eyes: Pupils are equal, round, and reactive to light. Extraocular movements intact. Conjunctiva and sclera normal. Eyelids normal. Throat: Pharynx normal. Uvula midline. Moist mucous membranes. Neck: Normal inspection. Neck supple. Full range of motion. Cardiovascular: Normal heart rate and rhythm. Heart sound normal. No murmurs noted. Pulses normal throughout. Respiratory: No respiratory distress. Painless inspiration. Breath sounds normal. No wheezes/rales/rhonchi noted. Chest nontender. No accessory muscle usage noted or decreased air movement noted. Back: Full range of motion noted. Skin: Skin warm and dry. Normal skin color. Normal skin turgor. No rashes/lesions/lacerations noted. Extremities: Extremities exhibit normal range of motion. Neuro: Oriented X 3. No motor deficit. No sensory deficit. Reflexes normal. Coding Level of Care Code Est Pt Level 4 (64563) Complex EM visit Add On G2211 Diagnoses Hypertension I10 Adverse effect of lisinopril T46.4X5A Ankle pain M25.579 Depression F32.A Additional Codes EWA-7 Assessment Billing - EWA-7 Assessment Tool: EWA-7 Assessment 19999 ([id number]) PHQ-9 - 66960 - PHQ-9 Billing: Yes ([id number]) Assessment & Plan Assessment & Plan (1) Hypertension: Code(s): I10 - Essential (primary) hypertension Category: Medical Plan: The patient will switch from lisinopril to losartan due to a persistent cough likely caused by lisinopril. Losartan, an angiotensin II receptor grupo, is expected to alleviate the cough while managing blood pressure effectively. The patient will monitor blood pressure at home and follow up in three months to assess the response to the new medication. Condition is chronic and stable continue to monitor. (2) Adverse effect of lisinopril: Comment: Cough Code(s): T46.4X5A - Adverse effect of tutnhsgqqdt-flmrutdbnz-kesnio inhibitors, initial encounter Category: Medical Plan: The cough is suspected to be an adverse effect of lisinopril, prompting a switch to losartan. The patient will be monitored for any adverse reactions to losartan, with a follow-up scheduled in three months. Condition is chronic and stable continue to monitor. (3) Ankle pain: Code(s): M25.579 - Pain in unspecified ankle and joints of unspecified foot Category: Medical Plan: The patient is currently using a topical NSAID and meloxicam for ankle pain management. She was advised to avoid concurrent use of Celebrex due to potential cardiovascular risks. Condition is chronic and stable will continue to monitor. (4) Depression: Code(s): F32.A - Depression, unspecified Category: Medical Plan: The patient will continue sertraline at 50 mg daily, as attempts to taper off resulted in worsening symptoms. She will monitor her symptoms and seek further evaluation if necessary. Condition is chronic and stable will continue to monitor. Plan Plan Patient was informed and verbally consented to the use of an ambient scribe for clinic note documentation during this visit. 1. Essential Hypertension The patient will switch from lisinopril to losartan due to a persistent cough likely caused by lisinopril. Losartan, an angiotensin II receptor grupo, is expected to alleviate the cough while managing blood pressure effectively. The patient will monitor blood pressure at home and follow up in three months to assess the response to the new medication. 2. Cough Due To Lisinopril The cough is suspected to be an adverse effect of lisinopril, prompting a switch to losartan. The patient will be monitored for any adverse reactions to losartan, with a follow-up scheduled in three months. 3. Ankle Pain The patient is currently using a topical NSAID and meloxicam for ankle pain management. She was advised to avoid concurrent use of Celebrex due to potential cardiovascular risks. 4. Depression The patient will continue sertraline at 50 mg daily, as attempts to taper off resulted in worsening symptoms. She will monitor her symptoms and seek further evaluation if necessary. During the visit, we discussed switching from lisinopril to losartan due to the persistent cough, which is a known side effect of lisinopril. I explained that losartan is an angiotensin II receptor grupo and should not cause a cough. We also reviewed the use of meloxicam for ankle pain and the importance of not using it concurrently with Celebrex due to cardiovascular risks. The patient will continue sertraline at 50 mg daily, as attempts to taper off resulted in worsening symptoms. Follow-up is scheduled in three months to assess the response to the new medication regimen and monitor blood pressure. Orders: Orders Comprehensive Met. Panel Today Z00.00 - Encounter for general adult medical examination without abnormal findings Medications: New losartan 25 mg PO DAILY 90 tabs 1RF Discontinued lisinopril Discontinued Reason: Doctor's Order 5 mg PO DAILY 30 tabs 0RF Patient Instructions: - Switch from lisinopril to losartan as prescribed. - Monitor blood pressure at home and report any significant changes. - Continue using meloxicam for ankle pain, but avoid using Celebrex concurrently. - Continue taking sertraline at 50 mg daily. - Schedule a follow-up appointment in three months.
== END 2024-10-22 15:35 | disposition home or self-care (01) ==
LOC: HO.HMCSH 14:56
PROVIDERS: PCP Internal Medicine; Visit Provider Physician Assistant Medical
DX: I10 Essential (primary) hypertension (principal); T46.4X5A Adverse effect of angiotensin-converting-enzyme inhibitors, initial encounter; M25.579 Pain in unspecified ankle and joints of unspecified foot; F32.A Depression, unspecified

== ENCOUNTER → 2024-10-22 14:56 | Outpatient (BNVA) | payer OTHER, SELFPAY | PROVIDERS: PCP Internal Medicine; Visit Provider Physician Assistant Medical | DX: I10 Essential (primary) hypertension (principal); F32.A Depression, unspecified; M25.579 Pain in unspecified ankle and joints of unspecified foot; R05.3 Chronic cough; T46.4X5A Adverse effect of angiotensin-converting-enzyme inhibitors, initial encounter | CPT/HCPCS: 96127 ==

== ENCOUNTER 2025-01-22 15:50 | Outpatient (REF) | payer OTHER, SELFPAY ==
--- NOTE | ~2025-01-22 | XR_ITS ---
EXAMINATION: XR CHEST CLINICAL INFORMATION: R05.9 - Cough, unspecified COMPARISON: None available. TECHNIQUE: 2 views of the chest were obtained. FINDINGS: Lungs are clear with coarse chronic markings. Multilevel degenerative changes are evident in the thoracic spine with mild disc space narrowing and anterior osteophytes. There is no pleural effusion. Heart size is within normal limits XR/XR chest 2V IMPRESSION: Mild coarse pulmonary markings could indicate bronchitis. Electronically signed by: Aleksey Merida MD 01/22/2025 05:33 PM EDT
[2025-01-22 17:00] LABS: MANUAL DIFF FLAG NO
[2025-01-22 17:11] LABS: Hematocrit 47.1 % (37.0-47.0); Hemoglobin 16.4 g/dl (12.0-16.0); Imm Gran Abs Auto 0.05 X10*3/uL (0.00-0.03); Imm Gran Pct Auto 0.4 % (0.0-0.4); Lymphocytes Absolute Auto 2.5 X10*3/uL (1.2-4.9); Mean Corpuscular HGB Conc 34.8 g/dl (31.0-35.0); Mean Corpuscular Hemoglobin 31.1 pg (27.0-33.0); Mean Corpuscular Volume 89.4 fL (80.0-98.0); NRBC Abs Auto 0.000 X10*3/uL (0.0-0.012); NRBC Pct Auto 0.0 /100WBC (0.0-0.2); Platelet Count 290 X10*3/uL (160-400); Red Blood Count 5.27 X10*6/uL (4.20-5.50); White Blood Count 12.3 X10*3/uL (4.8-10.8)
[2025-01-22 18:04] LABS: Alanine Aminotransferase 21 U/L (0-31); Albumin Level 4.8 g/dL (3.5-5.0); Alkaline Phosphatase 84 U/L (39-117); Anion Gap 15 (12-20); Aspartate Amino Transferase 21 U/L (5-31); Blood Urea Nitrogen 32 mg/dL (9-16); Calcium 9.8 mg/dL (8.4-10.2); Carbon Dioxide 26 mmol/L (22-29); Chloride 105 mmol/L (96-108); Estimated Glomerular Filt Rate 52; Magnesium 2.2 mg/dL (1.6-2.6); Potassium 3.9 mmol/L (3.3-5.1); Sodium 142 mmol/L (135-145); Total Protein 8.1 g/dL (6.5-8.0)
[2025-01-22 18:29] LABS: Folate 13.1 ng/mL (> or = 4.0); Vitamin B12 652 pg/mL (200-900)
--- OUTSIDE RECORDS SUMMARY | 2025-01-22 19:10 | XMS_ITS | Patient Health Record ---
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 Role Phone Rocky (RETIRED) Shaq RUIZ Primary Care Provid er Unavailable [place] Ontiveros Jr Unavailable Allergies Allergen (clinical drug ingredient) Drug/Non Drug Allergy documented on EMR Reaction Allergy Type Onset Date Status Penicillin Unknown Drug Allergy Active nitrofurantoin, macrocrystals / nitrofurantoin, monohydrate Macrobid Unknown Drug Allergy Active sulfamethoxazole / trimethoprim Bactrim Unknown Drug Allergy Active Reason For Referral No Information Medications Medication SIG (Take, Route, Frequency, Duration) Notes Start Date End Date Status Levoxyl 75 MCG 1 tablet in the morn ing on an empty stomach Orally Once a day Active MiraLax (colon prep) 17 GM/SCOOP mixed with Gatorade or Crystal Light Orally begin at 5:00 p.m. the day before the procedure for 1 day 08/13/2021 Active Flaxseed Oil Orally onc e a day Active Vitamin D Orally Once a day Ac tive Probiotic - 1 capsule Orally onc e a day Active Pravastatin Sodium 20 MG 1 tablet Orally Once a day Active Naproxen 500 MG 1 tablet with food o r milk Orally Once a day Active Estroven Active Immunizations Vaccine Route Administration Date Status Comme nts Influenza Unknown 02/06/2019 Administered Influenza Unknown 08/13/2021 Refused Social History Alcohol Screen Question Answer Notes Did you have a drink contain ing alcohol in the past year? Yes How often did you have a dri nk containing alcohol in the past year? Monthly or less (1 point) How many drinks did you have on a typical day when you were drinking in the past year? 1 or 2 drinks (0 point) How often did you have 6 or more drinks on one occasion in the past year? Never (0 point) Points 1 Interpretation Negative Problems Problem Type SNOMED Code ICD Code Onset Dates Problem Status W/U Status Risk Notes Problem 880493911 Colon cancer screening (Z12.11) Active confirmed Problem 694087191 Gastro-esophagea l reflux disease without esophagitis (K21.9) Active confirmed Problem 241730976 Celiac disease (K90.0) Active confirmed Problem 552726600 Colitis (K52.9) Active confirmed Problem Esophageal reflux finding (661054130) Gastroesophageal reflux (K21.9) Active confirmed Plan Of Treatment Future Test Test Name Order Date COLONOSCOPY 09/11/2015 UPPER GI ENDOSCOPY 06/22/2019 COLONOSCOPY 06/22/2019 UPPER GI ENDOSCOPY 08/13/2021 COLONOSCOPY 08/13/2021 Insurance Providers Payer Name Payer Address Payer Phone Subscriber Number Group Number Insured Name Patient Relationship to Insured Coverage Start Date Coverage End Date [facility] [address] [facility] [place] [id number] Self - patient is the insured Medical (General) History Medical History History ICD Code celiac disease graves disease vitiligo elevated cholesterol Surgical History Surgery Date(Month/Year) appendectomy lap endoscopic sinus nerve surgery
[2025-01-23 11:51] LABS: Chlamydia pneumoniae PCR Not Detected (Not Detect.); Coronavirus 229E PCR Not Detected (Not Detect.); Coronavirus HKU1 PCR Not Detected (Not Detect.); Coronavirus NL63 PCR Not Detected (Not Detect.); Coronavirus OC43 PCR Not Detected (Not Detect.); RSV PCR Not Detected (Not Detect.); Rhino/Enterovirus PCR Detected (Not Detect.)
[2025-01-23 12:41] LABS: Influenza A H1 PCR Not Detected (Not Detect.); Influenza A H1-2009 PCR Not Detected (Not Detect.); Influenza A H3 PCR Not Detected (Not Detect.); SARS-CoV-2 PCR Not Detected (Not Detect.)
== END 2025-01-22 15:51 | disposition home or self-care (01) ==
LOC: HO.XRAY 15:50
PROVIDERS: PCP Physician Assistant Medical; Visit Provider Physician Assistant Medical
DX: Z00.00 Encounter for general adult medical examination without abnormal findings (principal); R05.9 Cough, unspecified; R09.89 Other specified symptoms and signs involving the circulatory and respiratory systems; B34.9 Viral infection, unspecified; J18.9 Pneumonia, unspecified organism; R19.7 Diarrhea, unspecified; Z79.890 Hormone replacement therapy; Z79.52 Long term (current) use of systemic steroids; Z79.899 Other long term (current) drug therapy
CPT/HCPCS: 71046; 80053; 82248; 82306; 82607; 82746; 83036; 83735; 84443; 85025; 86140; 87633; 96127

== ENCOUNTER 2025-01-22 15:50 | Outpatient (AMB) | payer OTHER, SELFPAY ==
--- NOTE | 2025-01-22 15:53 | A.OFFPC_ITS ---
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 Accompanied by: Self / Same As Patient Allergies nitrofurantoin (From MACROBID) Allergy (Intermediate, Verified 01/22/25 16:28) RASH sulfamethoxazole (From BACTRIM) Allergy (Intermediate, Verified 01/22/25 16:28) RASH trimethoprim (From BACTRIM) Allergy (Intermediate, Verified 01/22/25 16:28) RASH amoxicillin Allergy (Mild, Verified 01/22/25 16:28) Rash Penicillins (PENICILLINS) Allergy (Unknown, Verified 01/22/25 16:28) Rash Medication List - Last Reconciled 01/22/25 by Clara Beth PA-C albuterol sulfate 90 mcg/actuation 1 inh inhalation QID PRN cholecalciferol (vitamin D3) (Vitamin D3) 25 mcg PO DAILY codeine-guaifenesin 10-100 mg/5 mL 5 mL PO Q6H PRN flaxseed oil 1,000 mg PO DAILY levothyroxine 100 mcg PO DAILY loratadine (Claritin) 10 mg PO DAILY losartan 25 mg PO DAILY magnesium 500 mg PO DAILY prednisone 40 mg (2 x 20 mg) PO DAILY 5 days sertraline 50 mg PO DAILY soy isofla-blk cohosh-mag bark 155 mg (Estroven) caps PO Tobacco use date assessed: 01/22/25 Dental Screening Dental Screen Date: 09/17/24 HPI 3 month follow up HPI Details The patient is a 59-year-old female presenting with symptoms of a viral infection. She reported the onset of symptoms on Tuesday, including fever, chills, sweats, and a severe cough, which prevented her from getting out of bed. She also experienced diarrhea shortly after eating, leading to a lack of appetite. 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 She suspects she may have contracted the illness from her students. She has not had any recent hospitalizations or significant changes in her medical history. She did not complete her scheduled blood work prior to this visit. 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, frequently exposed to children [facility]LY [facility] Medical History (Updated 01/22/25 @ 16:32 by Clara Beth PA-C) Diarrhea Pneumonia Viral infection Cough Ankle pain Adverse effect of lisinopril Hypertension Depression Osteoarthritis Hyperlipidemia LDL goal <100 History of mammogram (~06/2024) Establishing care with new doctor, encounter for Vitiligo Anxiety Neuropathy Pure hypercholesterolemia, unspecified Graves disease Celiac disease Elevated cholesterol Surgical History History of colonoscopy (~09/18/21) Hx of sinus surgery Hx of appendectomy Family History Father Heart attack Mother Dementia Social History Housing: House Alcohol intake: current Alcohol intake frequency: holidays/special occasions only Patient Tobacco Use Status: Current everyday Tobacco user Cigarettes Per Day: 6 service: Yes Current occupational status: employed Cognitive needs: No Hearing needs: No Vision needs: Yes (rx glasses) Questionnaire PHQ-9 Over the last 2 weeks, how often have you been bothered by any of the following problems? 1. Little interest or pleasure in doing things: not at all 2. Feeling down, depressed, or hopeless: not at all 3. Trouble falling or staying asleep, or sleeping too much: not at all 4. Feeling tired or having little energy: not at all 5. Poor appetite or overeating: not at all 6. Feeling bad about yourself - or that you are a failure or have let yourself or your family down: not at all 7. Trouble concentrating on things, such as reading the newspaper or watching television: not at all 8. Moving or speaking so slowly that other people could have noticed. Or the opposite - being so fidgety or restless that you have been moving around a lot more than usual: not at all 9. Thoughts that you would be better off or of hurting yourself in some way: not at all Total score: 0 Depression Screening Interpretation: Negative Depression Screening Done: Yes 16487 - PHQ-9 Billing: Yes Source: Developed by Drs. Shaq L. ChunShaina fox Kurt Kroenke and colleagues, with an educational janna from [employer]. Thrive Questionnaire Date Thrive assessed: 10/22/24 I am a: Patient What is your living situation today?: I have a steady place to live Within the past 12 months, did the food you bought not last and you didn't have the money to get more?: Never true Within the past 12 months, did you worry whether your food would run out before you got money to buy more?: Never true Do you have trouble paying for medicines?: No Do you have trouble getting transportation to medical appointments?: No Do you have trouble paying your heating and electricity bill?: No Do you have trouble taking care of your child, family member or friend?: No Do you have trouble with day-to-day activities such as bathing, preparing meals, shopping, managing finances, etc.?: No Are you currently unemployed and looking for a job?: No Are you interested in more education?: No Please select the resources that you would like help with: None THRIVE Score: 0 AUDIT C Alcohol Use Questionnaire (AUDIT-C) 1. How often do you have a drink containing alcohol?: Monthly or less 2. How many drinks containing alcohol do you have on a typical day when you are drinking?: 1 or 2 3. How often do you have six or more drinks on one occasion?: Never Total Score: 1 Score Reviewed/Action Taken: No EWA-7 AMB Questionnaire EWA-7 Date EWA - 7 assessed: 10/22/24 Feeling nervous, anxious, or on edge: 1 = Several days Not being able to stop or control worryin = Nearly every day Worrying too much about different things: 3 = Nearly every day Trouble relaxin = Nearly every day Being so restless that it is hard to sit still: 3 = Nearly every day Becoming easily annoyed or irritable: 1 = Several days Feeling afraid as if something awful might happen: 1 = Several days Total EWA-7 score (0-4 normal; 5-9 mild; 10-14 moderate; 15-21 severe): 15 Source: Developed by Shaina Anthony Kurt Kroenke and colleagues, with an educational janna from [employer]. EWA-7 Assessment Billing EWA-7 Assessment Tool: EWA-7 Assessment 51690 Review of Systems Const Details: - General: Reports fever, chills, and sweats - Respiratory: Reports severe cough, denies chest pain - Gastrointestinal: Reports diarrhea after eating, denies abdominal pain - Musculoskeletal: Reports muscle spasms, denies joint pain All systems reviewed & are unremarkable except as noted in HPI and below Physical exam (Primary Care) Vital Signs: Last Vital Signs Temp 98.2 F 01/22/25 15:54 Pulse 104 H 01/22/25 15:54 Resp 16 01/22/25 15:54 BP 121/63 01/22/25 15:54 Pulse Ox 96 01/22/25 15:54 Oxygen Delivery Method Room Air 01/22/25 15:54 Care Plan Goal for BP management: <140/90 at Goal BMI result Body Mass Index 28.5 Tobacco/Smoking Status: Tobacco use Status Tobacco use date assessed 01/22/25 01/22/25 16:03 Patient Tobacco Use Status Current everyday Tobacco 01/22/25 16:03 PHQ-9: PHQ-9 Score PHQ-9: Total score 0 01/22/25 16:03 Depression Screening Interpretation: Negative Thrive Assessment: Date of Thrive Assessment Date Thrive assessed 10/22/24 01/22/25 16:03 Const Other: Appearance: Alert. Oriented X3. No acute distress. Head: Normal external exam. Normocephalic. Atraumatic. Eyes: Pupils are equal, round, and reactive to light. Extraocular movements intact. Conjunctiva and sclera normal. Eyelids normal. Ears: External auditory canal normal. Tympanic membranes normal. Throat: Pharynx normal. Uvula midline. Moist mucous membranes. Neck: Normal inspection. Neck supple. Full range of motion. No adenopathy. No meningeal signs. Cardiovascular: Heart rate 100. Normal heart rhythm. Heart sound normal. No murmurs noted. Pulses normal throughout. Respiratory: No respiratory distress. Painless inspiration. Breath sounds normal. No wheezes/rales/rhonchi noted. No accessory muscle usage noted or decreased air movement noted. Back: Full range of motion noted. Skin: Skin warm and dry. Normal skin color. Normal skin turgor. No rashes/lesions/lacerations noted. Extremities: Extremities exhibit normal range of motion. Neuro: Oriented X 3. No motor deficit. No sensory deficit. Reflexes normal. Coding Level of Care Code Est Pt Level 4 (17176) Complex EM visit Add On G2211 Diagnoses Viral infection B34.9 Pneumonia J18.9 Diarrhea R19.7 Additional Codes EWA-7 Assessment Billing - EWA-7 Assessment Tool: EWA-7 Assessment 45765 ([id number]) PHQ-9 - 12388 - PHQ-9 Billing: Yes ([id number]) Assessment & Plan Assessment & Plan (1) Viral infection: Code(s): B34.9 - Viral infection, unspecified Category: Medical Plan: The patient is suspected to have a viral infection, possibly COVID-19 or influenza. Testing for COVID-19 and influenza was recommended to confirm the diagnosis. A chest x-ray was advised to rule out pneumonia. Supportive care with cough medicine, an albuterol inhaler, and prednisone was initiated. (2) Pneumonia: Code(s): J18.9 - Pneumonia, unspecified organism Category: Medical Plan: Pneumonia is considered a differential diagnosis due to the presence of fever and cough. A chest x-ray was recommended to confirm or rule out pneumonia. Antibiotics were considered if bacterial pneumonia is confirmed. (3) Diarrhea: Code(s): R19.7 - Diarrhea, unspecified Category: Medical Plan: The patient reported diarrhea occurring shortly after eating, which is associated with the current illness. No specific treatment was discussed for diarrhea, as it is likely viral in origin. Plan Plan Patient was informed and verbally consented to the use of an ambient scribe for clinic note documentation during this visit. 1. Viral Infection The patient is suspected to have a viral infection, possibly COVID-19 or influenza. Testing for COVID-19 and influenza was recommended to confirm the diagnosis. A chest x-ray was advised to rule out pneumonia. Supportive care with cough medicine, an albuterol inhaler, and prednisone was initiated. 2. Pneumonia Pneumonia is considered a differential diagnosis due to the presence of fever and cough. A chest x-ray was recommended to confirm or rule out pneumonia. Antibiotics were considered if bacterial pneumonia is confirmed. 3. Diarrhea The patient reported diarrhea occurring shortly after eating, which is associated with the current illness. No specific treatment was discussed for diarrhea, as it is likely viral in origin. I discussed with the patient the likelihood of a viral infection, possibly COVID-19 or influenza, and the need for testing to confirm the diagnosis. I recommended a chest x-ray to rule out pneumonia and explained that antibiotics would only be necessary if bacterial pneumonia is confirmed. Supportive care measures, including cough medicine, an albuterol inhaler, and prednisone, were initiated to manage symptoms. I advised the patient to follow up with testing and to return if symptoms worsen or do not improve. Orders: Orders XR chest 2V Today R05.9 - Cough, unspecified SARS-CoV2/FLU/RSV Today R09.89 - Other specified symptoms and signs involving the circulatory and respiratory systems Resp Pathogen Panel - [facility] Today R05.9 - Cough, unspecified Medications: New albuterol sulfate 90 mcg/actuation 1 inh inhalation QID PRN 6.7 grams 0RF shortness of breath or wheezing prednisone 40 mg (2 x 20 mg) PO DAILY 10 tabs 0RF 5 days codeine-guaifenesin 10-100 mg/5 mL 5 mL PO Q6H PRN 120 mL 0RF cough Patient Instructions: - Get tested for COVID-19 and influenza as soon as possible. - Obtain a chest x-ray to rule out pneumonia. - Use prescribed cough medicine, albuterol inhaler, and prednisone as directed. - Follow up with the clinic if symptoms worsen or do not improve.
[2025-01-22 15:54] VITALS: BP 121/63; PULSE 104; RESP 16; TEMP 36.8; O2SAT 96; BMI 28.5
== END 2025-01-22 16:24 | disposition home or self-care (01) ==
LOC: HO.HMCSH 15:51
PROVIDERS: PCP Internal Medicine; Visit Provider Physician Assistant Medical
DX: B34.9 Viral infection, unspecified (principal); J18.9 Pneumonia, unspecified organism; R19.7 Diarrhea, unspecified

== ENCOUNTER → 2025-01-22 16:58 | Outpatient (BNV) | payer OTHER, SELFPAY | PROVIDERS: PCP Physician Assistant Medical; Visit Provider Radiology Diagnostic Radiology | DX: R05.9 Cough, unspecified (principal) | CPT/HCPCS: 71046 ==

== ENCOUNTER 2025-02-20 15:38 | Outpatient (AMB) | payer OTHER, SELFPAY ==
[2025-02-20 15:44] VITALS: BP 134/80; PULSE 70; TEMP 36.2; O2SAT 94; BMI 29.5
--- NOTE | 2025-02-20 15:44 | A.OFFPC_ITS ---
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 Job Titles Required: No Accompanied by: Self / Same As Patient Allergies nitrofurantoin (From MACROBID) Allergy (Intermediate, Verified 02/20/25 16:02) RASH sulfamethoxazole (From BACTRIM) Allergy (Intermediate, Verified 02/20/25 16:02) RASH trimethoprim (From BACTRIM) Allergy (Intermediate, Verified 02/20/25 16:02) RASH amoxicillin Allergy (Mild, Verified 02/20/25 16:02) Rash Penicillins (PENICILLINS) Allergy (Unknown, Verified 02/20/25 16:02) Rash Medication List - Last Reconciled 02/20/25 by Clara Beth PA-C albuterol sulfate 90 mcg/actuation 1 inh inhalation QID PRN azithromycin For 250 mg dose pack: take 500 mg today (day 1), then 250 mg for 4 days (days 2-5) PO celecoxib (Celebrex) 200 mg PO DAILY cholecalciferol (vitamin D3) (Vitamin D3) 25 mcg PO DAILY flaxseed oil 1,000 mg PO DAILY levothyroxine 100 mcg PO QAM loratadine (Claritin) 10 mg PO DAILY losartan 25 mg PO DAILY magnesium 500 mg PO DAILY sertraline 50 mg PO DAILY soy isofla-blk cohosh-mag bark 155 mg (Estroven) caps PO Tobacco use date assessed: 02/20/25 Dental Screening Dental Screen Date: 02/20/25 Did you have a dental visit in the last 12 months?: Yes Was dental information given to patient?: Patient has dentist HPI 1 month follow up HPI Details The patient is a 59-year-old female presenting with persistent cough and fatigue. She reports a history of bronchitis following an enteroviral infection, which has led to ongoing symptoms of coughing and exhaustion. The cough is unpredictable, with episodes occurring randomly, sometimes causing her to wake up at night. The patient has a history of Graves' disease, which has previously caused cardiac symptoms, including an abnormal EKG and chest pain. She also reports a family history of heart disease, with her father having of a heart attack a t age 44. Additionally, the patient experiences a tickle in her throat, leading to coughing and occasional gagging, which she suspects may be due to allergies. She has been using Claritin but is considering switching to Iveth as recommended. Patient reports over the past few months she has had fatigue with activity, walking therefore she walks low she just feels very winded and exhausted. She reports when she gets out of work she is always tired. She denies any chest pain, dizziness, orthopnea or leg swelling. Social History - Family history: Father of a heart attack at age 44. [facility] Medical History (Updated 02/20/25 @ 17:34 by Clara Beth PA-C) Allergic rhinitis Heart murmur Bronchitis ANDRE (dyspnea on exertion) SOB (shortness of breath) Fatigue Diarrhea Pneumonia Viral infection Cough Ankle pain Adverse effect of lisinopril Hypertension Depression Osteoarthritis Hyperlipidemia LDL goal <100 History of mammogram (~06/2024) Establishing care with new doctor, encounter for Vitiligo Anxiety Neuropathy Pure hypercholesterolemia, unspecified Graves disease Celiac disease Elevated cholesterol Surgical History History of colonoscopy (~09/18/21) Hx of sinus surgery Hx of appendectomy Family History Father Heart attack Mother Dementia Social History Housing: House Alcohol intake: current Alcohol intake frequency: holidays/special occasions only Patient Tobacco Use Status: Current everyday Tobacco user Cigarettes Per Day: 6 service: Yes Current occupational status: employed Cognitive needs: No Hearing needs: No Vision needs: Yes (rx glasses) Questionnaire PHQ-9 Over the last 2 weeks, how often have you been bothered by any of the following problems? 1. Little interest or pleasure in doing things: not at all 2. Feeling down, depressed, or hopeless: not at all 3. Trouble falling or staying asleep, or sleeping too much: not at all 4. Feeling tired or having little energy: not at all 5. Poor appetite or overeating: not at all 6. Feeling bad about yourself - or that you are a failure or have let yourself or your family down: not at all 7. Trouble concentrating on things, such as reading the newspaper or watching television: not at all 8. Moving or speaking so slowly that other people could have noticed. Or the opposite - being so fidgety or restless that you have been moving around a lot more than usual: not at all 9. Thoughts that you would be better off or of hurting yourself in some way: not at all Total score: 0 Depression Screening Interpretation: Negative Depression Screening Done: Yes 06273 - PHQ-9 Billing: Yes Source: Developed by Drs. Shaq Mccollum, Shaina Muniz, Hernandez Antonio and colleagues, with an educational janna from [employer]. Thrive Questionnaire Date Thrive assessed: 02/20/25 I am a: Patient What is your living situation today?: I have a steady place to live Within the past 12 months, did the food you bought not last and you didn't have the money to get more?: Never true Within the past 12 months, did you worry whether your food would run out before you got money to buy more?: Never true Do you have trouble paying for medicines?: No Do you have trouble getting transportation to medical appointments?: No Do you have trouble paying your heating and electricity bill?: No Do you have trouble taking care of your child, family member or friend?: No Do you have trouble with day-to-day activities such as bathing, preparing meals, shopping, managing finances, etc.?: No Are you currently unemployed and looking for a job?: No Are you interested in more education?: No Please select the resources that you would like help with: None THRIVE Score: 0 AUDIT C Alcohol Use Questionnaire (AUDIT-C) 1. How often do you have a drink containing alcohol?: Monthly or less 2. How many drinks containing alcohol do you have on a typical day when you are drinking?: 1 or 2 3. How often do you have six or more drinks on one occasion?: Never Total Score: 1 Score Reviewed/Action Taken: No EWA-7 AMB Questionnaire EWA-7 Date EWA - 7 assessed: 02/20/25 Feeling nervous, anxious, or on edge: 1 = Several days Not being able to stop or control worryin = Nearly every day Worrying too much about different things: 3 = Nearly every day Trouble relaxin = Nearly every day Being so restless that it is hard to sit still: 3 = Nearly every day Becoming easily annoyed or irritable: 1 = Several days Feeling afraid as if something awful might happen: 1 = Several days Total EWA-7 score (0-4 normal; 5-9 mild; 10-14 moderate; 15-21 severe): 15 Source: Developed by Drs. Shaq Mccollum, Shaina Muniz, Hernandez Antonio and colleagues, with an educational janna from [employer]. EWA-7 Assessment Billing EWA-7 Assessment Tool: EWA-7 Assessment 24578 Review of Systems Const Details: - Respiratory: Reports persistent cough and dyspnea on exertion. Denies wheezing or hemoptysis. - Cardiovascular: Reports fatigue and exertional dyspnea. Denies chest pain or orthopnea. - Gastrointestinal: Denies abdominal pain or nausea. - Neurological: Denies headaches or dizziness. All systems reviewed & are unremarkable except as noted in HPI and below Physical exam (Primary Care) Vital Signs: Last Vital Signs Temp 97.1 F 02/20/25 15:44 Pulse 70 02/20/25 15:44 BP 134/80 02/20/25 15:44 Pulse Ox 94 02/20/25 15:44 Oxygen Delivery Method Room Air 02/20/25 15:44 Care Plan Goal for BP management: <140/90 at Goal BMI result Body Mass Index 29.5 BMI Assessment/Plan discussion: High BMI High, discussed plan: lifestyle, weight reduction, dietary, physical activity, alcohol moderation and other Tobacco/Smoking Status: Tobacco use Status Tobacco use date assessed 02/20/25 02/20/25 15:46 Patient Tobacco Use Status Current everyday Tobacco 02/20/25 15:46 PHQ-9: PHQ-9 Score PHQ-9: Total score 0 02/20/25 16:03 Depression Screening Interpretation: Negative Thrive Assessment: Date of Thrive Assessment Date Thrive assessed 02/20/25 02/20/25 15:46 Const Other: Appearance: Alert. Oriented X3. No acute distress. Head: Normal external exam. Normocephalic. Atraumatic. Eyes: Pupils are equal, round, and reactive to light. Extraocular movements intact. Conjunctiva and sclera normal. Eyelids normal. Ears: External auditory canal normal. Tympanic membranes normal. Throat: Pharynx normal. Uvula midline. Moist mucous membranes. Neck: Normal inspection. Neck supple. Full range of motion. No adenopathy. Th yroid Normal. No meningeal signs. No neck mass noted. Cardiovascular: Heart murmur noted. Normal heart rate and rhythm. Heart sound normal. Pulses normal throughout. Respiratory: No respiratory distress. Painless inspiration. Breath sounds normal. No wheezes/rales/rhonchi noted. Chest nontender. No accessory muscle usage noted or decreased air movement noted. Abdomen: Soft and nontender. No distention noted. No organomegaly noted. No visible injury noted. Back: No costovertebral angle tenderness. Full range of motion noted. Skin: Skin warm and dry. Normal skin color. Normal skin turgor. No saroj hes/lesions/lacerations noted. Extremities: No lower extremity edema. Extremities exhibit normal range of motion. Neuro: Oriented X 3. No motor deficit. No sensory deficit. Reflexes normal. Office Procedures Flu Questionnaire Does the patient have a severe egg allergy?: No Does the patient have severe life threatening allergies?: No Does the patient have a fever or illness today?: No Has the patient ever had Guillain-[place] Syndrome?: No Has the patient ever had any past reaction to a flu shot?: No Immunizations Fluarix [id number] (PF) 45 mcg (15 mcg x 3)/0.5 mL IM syringe Performing Provider: Clara Beth PA-C [facility] Administered by: Effie Atkinson CMA on 02/20/25 15:58 Dose Route Admin Location Dispensed Lot Number Expiration Date NDC Roll Shop Supervisor 0.5 mL IM Right Deltoid 0.5 mL [id number] 11/05/25 84667-400-36 [employer] VIS Given Date VIS Provided VIS Publication Date 02/20/25 Single Vaccine 24 Eligibility Eligibility Date Funding Source Not [facility] Eligible 02/20/25 Private Results Reviewed Results Reviewed: - Imaging: Chest x-ray showed bronchitis. Coding Level of Care Code Est Pt Level 4 (80463) Complex EM visit Add On G2211 Diagnoses Bronchitis J40 Heart murmur R01.1 Allergic rhinitis J30.9 ANDRE (dyspnea on exertion) R06.09 SOB (shortness of breath) R06.02 Fatigue R53.83 Additional Codes EWA-7 Assessment Billing - EWA-7 Assessment Tool: EWA-7 Assessment 02547 ([id number]) PHQ-9 - 75338 - PHQ-9 Billing: Yes ([id number]) Time Spent (min) 50 Assessment & Plan Assessment & Plan (1) Bronchitis: Code(s): J40 - Bronchitis, not specified as acute or chronic Category: Medical Plan: The patient will start a course of azithromycin (Z-Maulik) to address the bronchitis, as the symptoms have persisted and there is a risk of progression to pneumonia. Additionally, Robitussin with codeine will be used to manage the cough, particularly at night to aid sleep. (2) Heart murmur: Code(s): R01.1 - Cardiac murmur, unspecified Category: Medical Plan: An echocardiogram and stress test are planned to further evaluate the heart murmur and assess cardiac function, given the patient's history of Graves' disease and family history of heart disease. The stress test will be conducted at a assault amphibious vehicle crewman's office, and a chemical stress test will be considered if the patient is unable to complete a physical stress test. (3) Allergic rhinitis: Code(s): J30.9 - Allergic rhinitis, unspecified Category: Medical Plan: The patient will switch from Claritin to Iveth to manage symptoms of allergic rhinitis, which may be contributing to the throat tickle and cough. If symptoms persist, further evaluation with imaging of the throat may be considered. (4) ANDRE (dyspnea on exertion): Code(s): R06.09 - Other forms of dyspnea Category: Medical Plan: Will refer for EKG, stress test and echocardiogram if abnormal will refer to Cardiology. Condition is subacute and stable will continue to monitor. (5) SOB (shortness of breath): Code(s): R06.02 - Shortness of breath Category: Medical Plan: Will refer for EKG, stress test and echocardiogram if abnormal will refer to Cardiology. Condition is subacute and stable will continue to monitor. (6) Fatigue: Code(s): R53.83 - Other fatigue Category: Medical Plan: Will refer for EKG, stress test and echocardiogram if abnormal will refer to Cardiology. Condition is subacute and stable will continue to monitor. Plan Plan Patient was informed and verbally consented to the use of an ambient scribe for clinic note documentation during this visit. 1. Bronchitis The patient will start a course of azithromycin (Z-Maulik) to address the bronchitis, as the symptoms have persisted and there is a risk of progression to pneumonia. Additionally, Robitussin with codeine will be used to manage the cough, particularly at night to aid sleep. 2. Heart Murmur An echocardiogram and stress test are planned to further evaluate the heart murmur and assess cardiac function, given the patient's history of Graves' disease and family history of heart disease. The stress test will be conducted at a assault amphibious vehicle crewman's office, and a chemical stress test will be considered if the patient is unable to complete a physical stress test. 3. Allergic Rhinitis The patient will switch from Claritin to Iveth to manage symptoms of allergic rhinitis, which may be contributing to the throat tickle and cough. If symptoms persist, further evaluation with imaging of the throat may be considered. 4. Fatigue/dyspnea on exertion/shortness of breath Will refer for EKG, stress test and echocardiogram if abnormal will refer to Cardiology. Condition is subacute and stable will continue to monitor. I discussed with the patient the importance of taking the prescribed antibiotics to prevent the progression of bronchitis to pneumonia. We also talked about the potential need for a stress test and echocardiogram to evaluate the heart murmur, considering her family history of heart disease. The patient was advised to switch to Iveth for her allergic symptoms and to monitor for any im provement. Orders: Orders CA stress test Today I10 - Essential (primary) hypertension, R06.02 - Shortness of breath, R06.09 - Other forms of dyspnea, R53.83 - Other fatigue NM cardiolite stress test Today I10 - Essential (primary) hypertension, R06.02 - Shortness of breath, R06.09 - Other forms of dyspnea, R53.83 - Other fatigue Influenza [id number] Immunization Today Z23 - Encounter for immunization CA echo transthoracic complete Today R06.02 - Shortness of breath, R06.09 - Other forms of dyspnea, R53.83 - Other fatigue ECG 12 lead EKG Today I10 - Essential (primary) hypertension, R06.02 - Shortness of breath, R06.09 - Other forms of dyspnea, R53.83 - Other fatigue Medications: New fexofenadine-pseudoephedrine 60-120 mg ER (Iveth-D 12 Hour) 1 tab PO Q12H 60 tabs 3RF Refilled codeine-guaifenesin 10-100 mg/5 mL 5 mL PO Q6H PRN 120 mL 0RF cough Patient Instructions: - Take the prescribed Z-Maulik as directed to treat bronchitis. - Use Robitussin with codeine at night to help manage cough and improve sleep. - Switch to Iveth for allergy management and monitor for symptom improvement. - Follow up with the assault amphibious vehicle crewman for a stress test and echocardiogram. - Schedule a follow-up appointment in three months to reassess symptoms and treatment efficacy.
== END 2025-02-20 16:21 | disposition home or self-care (01) ==
PROVIDERS: PCP Physician Assistant Medical; Visit Provider Physician Assistant Medical
DX: J40 Bronchitis, not specified as acute or chronic (principal); R01.1 Cardiac murmur, unspecified; J30.9 Allergic rhinitis, unspecified; R06.09 Other forms of dyspnea; R06.02 Shortness of breath; R53.83 Other fatigue; Z23 Encounter for immunization

== ENCOUNTER → 2025-02-20 15:38 | Outpatient (BNVA) | payer OTHER, SELFPAY | PROVIDERS: PCP Physician Assistant Medical; Visit Provider Physician Assistant Medical | DX: J40 Bronchitis, not specified as acute or chronic (principal); R01.1 Cardiac murmur, unspecified; R05.3 Chronic cough; R53.83 Other fatigue; E05.00 Thyrotoxicosis with diffuse goiter without thyrotoxic crisis or storm; J30.9 Allergic rhinitis, unspecified; R06.09 Other forms of dyspnea; Z23 Encounter for immunization | CPT/HCPCS: 90471; 90656; 96127 ==

== ENCOUNTER → 2025-03-14 08:53 | Outpatient (REF) | payer OTHER, SELFPAY ==
--- NOTE | 2025-03-14 08:57 | CA_ITS ---
Transthoracic Echocardiogram Patient (Last, First, Middle): Tejal Ghotra, Gender: F Date of : 1965 Age: 59 Procedure Date: 03/14/2025 Procedure Type: Transthoracic Echocardiogram Location: OP Height: 160.02 cm Weight: 75.3 kg BSA: 1.79 m2 Heart Rate: bpm BP: 134 / 80 mmHg Parachute Accessories Attacher: STEFFEN Referring MD: Clara Beth PA-C Automated Weaver: Sharif Meier MD Symptoms: R53.83 - Other fatigue Study Quality: Adequate ECG Rhythm: Sinus Conclusions: - 1. Normal LV ejection fraction of 65-70% with grade 1 diastolic dysfunction 2. Normal cardiac valvular Dopplers 3. No gross pericardial effusion Findings Left Ventricle Normal left ventricular size, thickness, and systolic function. The visually estimated ejection fraction is between 65-70%. Spectral Doppler is indicative of an impaired relaxation filling pattern. E/E prime ratio is <8, consistent with normal filling pressures. Evidence suggests grade I (mild) diastolic dysfunction. possible basal inferolateral wall motion abnormality. Right Ventricle Normal right ventricular cavity size and systolic function. Atria Both atria are normal in size. There is no evidence of interatrial shunt. Aortic Valve The aortic valve structure and function is likely normal. There is no aortic valve stenosis. There is no aortic valve regurgitation. Mitral Valve Likely normal mitral valve structure and function. There is no mitral valve regurgitation. There is no mitral valve stenosis. Pulmonic Valve The pulmonic valve was not well visualized. Tricuspid Valve Likely normal tricuspid valve structure and function. Normal right atrial pressure. Great Vessels All visible segments of the aorta are normal in size. The pulmonary artery was not well visualized. Venous The inferior vena cava is normal in size and collapses greater than 50% with inspiration. Pericardium/Pleural Widened pericardial space, unable to distinguish between adipose tissue and effusion. Prior Study Comparison No prior study available for comparison. Measurements 2D Linear Measurements IVSd: 0.87 0.6-0.9/0.6-1.0 cm LVIDd: 4.07 3.9-5.3/4.2-5.9 cm LVIDd Index: 2.27 2.4-3.2/2.2-3.1 cm/m2 LVIDs: 2.18 2.0-3.6 cm LVPWd: 0.97 0.7-1.1 cm LA Diam: 3.90 2.7-3.8/3.0-4.0 cm LAIDs Index: 2.18 1.5-2.3 cm/m2 LV Mass: 144.24 67-162/88-224 g LV Mass Index: 80.58 43-95/49-115 g/m2 LVOT Diam: 2.00 3.0+(-)1.3 cm Mitral Valve MV Pk E: 0.79 MV PK A: 0.91 MV Decel Time: 280.00 E/A: 0.90 E'Lateral: 9.36 E'Medial: 4.57 E/E' Med: 17.20 E/E' Lat: 8.40 PHT: 82.00 MVA PHT: 2.68 Decel Harlan: 2.81 Aortic Valve AoV Pk Siddhartha: 1.59 AoV Mn Siddhartha: 1.14 AoV VTI: 0.33 AoV Pk Grad: 10.00 Aov Mn Grad: 6.00 HORACE Cont.VTI: 2.62 LVOT LVOT Pk Siddhartha: 1.38 LVOT Mn Siddhartha: 0.88 LVOT VTI: 0.28 LVOT Pk Grad: 8.00 LVOT Mn Grad: 4.00 LVOT Diam: 2.00 LVOT Area: 3.14 Diastolic Function MV Pk E: 0.79 MV Pk A: 0.91 E/A: 0.90 E'Medial: 4.57 E/E' Med: 17.20 E' Laterial: 9.36 E/E' Lat: 8.40 Right Ventricle TAPSE (mm): 21.60 TVS' Siddhartha: 14.00 Tricuspid Valve RA Press: 3.00 Great Vessels Aorta Sinus of Valsalva: 3.09 2.0-3.[address] Ridge: 2.16 1.7-3.4 cm Ao Asc: 2.90 2.1-3.4 cm Pulmonary Veins Pulm Vein S/D 0.90 Updated in Other Vendor System with Status of Final Sharif Meier MD electronically signed on 03/14/2025 12:15:39 PM with status of Final
== END ==
LOC: HO.CARD 08:53
PROVIDERS: Visit Provider Physician Assistant Medical
DX: R06.02 Shortness of breath (principal); R06.09 Other forms of dyspnea; R53.83 Other fatigue
CPT/HCPCS: 93306

== ENCOUNTER → 2025-03-14 08:57 | Outpatient (BNV) | payer OTHER, SELFPAY | PROVIDERS: Visit Provider Internal Medicine Cardiovascular Disease | DX: I51.89 Other ill-defined heart diseases (principal); R53.83 Other fatigue | CPT/HCPCS: 93306 ==

== ENCOUNTER → 2025-04-02 08:01 | Outpatient (REF) | payer OTHER, SELFPAY ==
--- NOTE | ~2025-04-02 | NM_ITS ---
EXERCISE MYOCARDIAL PERFUSION STUDY INDICATION: Shortness of breath TECHNIQUE: The patient was brought in for an exercise perfusion study on 04/02/2025. Patient performed exercise as per Pablo protocol and was injected 25 mCi of sestamibi once target heart rate was achieved. Images were obtained using the SPECT gamma camera interlaced with the gating device. Images were obtained in supine position. Resting perfusion study was performed on 04/03/2025. Patient was administered 25 mCi of sestamibi intravenously at rest. Images were then obtained in supine position. Total DLP 86 mGy-cm. Images were processed with the software and compared side to side in short axis, horizontal long axis and vertical long axis views. FINDINGS: Raw aquisition reviewed. The stress perfusion study showed no significant perfusion abnormality. Both uncorrected as well as CT attenuation corrected images were reviewed. The gated study shows hyperdynamic LV systolic function with calculated LVEF of >70%. LV cavity is normal in size. The gated study shows normal wall thickening and contraction of segments. Resting study shows no significant perfusion abnormality. Gating at rest reveals normal wall motion with visualized estimated ejection fraction at >70%. The findings are consistent with no clear reversible or fixed perfusion abnormality. NM/NM cardiolite stress test IMPRESSION: 1. Myocardial perfusion imaging study shows normal myocardial perfusion. 2. Gated LVEF is > 70% during stress and rest. 3. Transient ischemic dilatation not present. EKG component of the test reported separately. Electronically signed by: Nayan Fabian MD 04/03/2025 05:00 PM [facility]
--- NOTE | 2025-04-02 08:03 | CA_ITS ---
Acquisition Time: 2025-04-02 08:18:03 Total Exercise Time: 00:05:00 Test Indications: sob Medications: see h&p Protocol: RADHA Max HR: 136 BPM 85% of Pred: 160 BPM Max BP: 166/84 mmHG Max Work Load: 7.0 METS Exercise stress test with exercise 5 mins of Radha Protocol, achieving 85% MPHR, with reports of SOB, no chest pain, with isolated PVCs, with normotensive response to exercise. With baseline ST- T wave abnormality that became more prominent with exercise. ST segment improved in recovery. In recovery, breathing improved to baseline. Nuclear images pending. Test reviewed with Dr. Gardner. Referred By: Clara Beth Electronically Signed By: Dariel Orellana
--- NOTE | 2025-04-02 08:03 | ECG_ITS ---
Test Reason : HTN Blood Pressure : */* mmHG Vent. Rate : 85 BPM Atrial Rate : 85 BPM P-R Int : 130 ms QRS Dur : 68 ms QT Int : 358 ms P-R-T Axes : 50 54 135 degrees QTcB Int : 426 ms Normal sinus rhythm ST & T wave abnormality, consider anterolateral ischemia Abnormal ECG When compared with ECG of 19-Apr-2006 11:52, T wave inversions are more marked Referred By: Clara Beth Electronically Signed By: Mikey Gardner
== END ==
LOC: HO.CARD 08:01
PROVIDERS: PCP Physician Assistant Medical; Visit Provider Physician Assistant Medical
DX: I10 Essential (primary) hypertension (principal); R06.09 Other forms of dyspnea; R06.02 Shortness of breath; R53.83 Other fatigue
CPT/HCPCS: 78452; 93005; 93017; A9500

== ENCOUNTER → 2025-04-02 08:03 | Outpatient (BNV) | payer OTHER, SELFPAY | PROVIDERS: PCP Physician Assistant Medical | DX: I49.3 Ventricular premature depolarization (principal); R06.02 Shortness of breath; R94.31 Abnormal electrocardiogram [ECG] [EKG]; I10 Essential (primary) hypertension | CPT/HCPCS: 78452; 93010; 93016; 93018 ==